=== PATIENT | female | born 1985 | race Caucasian/White ===

== ENCOUNTER 2019-07-14 08:02 | Emergency (ER) | payer OTHER, SELFPAY ==
--- NOTE | 2019-07-14 08:11 | ED.GENADULT ---
HPI - General Adult General Chief complaint: Upper Respiratory Infection Stated complaint: sore throat/earache/chills/dry cough/runny nose Time Seen by Provider: 07/14/19 08:11 Source: patient Mode of arrival: ambulatory Limitations: no limitations History of Present Illness HPI narrative: 33-year-old female patient presents to the [facility] with complaints of cold symptoms that started yesterday. Patient states she has had a sore throat, slight cough, runny nose, headache. Patient states she is been taking Tylenol ibuprofen. Patient states that she did not get a flu shot this year. Patient states that her son's class had a couple cases of strep but he himself has not had strep or been sick recently. Related Data Home Medications Medication Instructions Recorded Confirmed No Home Medications 07/14/19 07/14/19 Allergies Allergy/AdvReac Type Severity Reaction Status Date / Time Penicillins Allergy Mild HIVES Verified 05/10/18 04:41 terbutaline Allergy Mild Unknown Verified 07/14/19 08:27 Sulfa (Sulfonamide Allergy Unknown HIVES\ Verified 05/10/18 04:41 Antibiotics) Review of Systems Review of Systems: Narrative: CONSTITUTIONAL: Denies fever, chills, or sweats. EYES: Denies visual changes, redness, or discharge. ENT: Positive rhinorrhea, congestion, sore throat, denies otalgia. CARDIOVASCULAR: Denies chest pain, palpitations, or edema. RESPIRATORY: Positive cough, denies dyspnea. GASTROINTESTINAL: Denies abdominal pain, nausea, vomiting, or diarrhea. GENITOURINARY: Denies dysuria or hematuria. SKIN: Denies rash or itching. MUSCULOSKELETAL: Denies back pain, joint pain, or myalgia. NEUROLOGIC: Denies headache, numbness, or weakness. PSYCHIATRIC: Denies anxiety or depression. PMFSH Social History Social History Gender identity (if verbalized by the patient): Female Comments At the time of my signature I agree with nursing past medical history, surgical, social, and family history. There is no relevant family history pertinent to the presenting complaint. Exam Narrative: Exam Narrative: GENERAL: Well-appearing, well-nourished, and in no acute distress. HEAD: Normocephalic, atraumatic. EYES: PERRLA and EOMI. ENT: Nares clear, no rhinorrhea or epistaxis. Mucous membranes moist. Posterior pharynx with slight erythema but no tonsil enlargement, no exudates or lesions present. NECK: Supple. No lymphadenopathy CHEST: Clear to auscultation. No respiratory distress. Patient able talk in clear complete sentences. No tripoding noted. HEART: Regular rate and rhythm. No murmur heard. Normal peripheral pulses. ABDOMEN: Soft, nontender, nondistended, normal active bowel sounds. EXTREMITIES: Normal range of motion. No edema. SKIN: Warm, dry, no rash. NEURO: No focal deficits. Alert and oriented x3. Course Reevaluation(s) Reevaluation #1: Notify patient that she is negative today for strep. Discussed with her we will send this off to the lab for further evaluation and testing if for some reason it does come back positive the next day or 2 we will call her and place her on antibiotics at that time. Patient verbalized understanding denies any other questions or concerns at this time. Discussed with patient she can continue treating herself with Tylenol, ibuprofen, warm salt water gargles and hot tea with honey. Patient verbalized understanding denies any other questions or concerns. Date: 07/14/19 Time: 08:33 Vital Signs Vital signs: Vital Signs Temperature 36.4 C 07/14/19 08:18 Pulse Rate 72 07/14/19 08:18 Respiratory Rate 16 07/14/19 08:18 Blood Pressure 117/73 07/14/19 08:18 Pulse Oximetry 99 07/14/19 08:18 Temperature 36.4 C 07/14/19 08:18 Pulse Rate 72 07/14/19 08:18 Respiratory Rate 16 07/14/19 08:18 Blood Pressure 117/73 07/14/19 08:18 Pulse Oximetry 99 07/14/19 08:18 Vital signs reviewed. Medical Decision Making Di
[2019-07-14 08:18] VITALS: BP 117/73; PULSE 72; RESP 16; TEMP 36.4; O2SAT 99
== END 2019-07-14 08:35 | disposition home or self-care (01) ==
PROVIDERS: Emergency Provider Nurse Practitioner Family
DX: J02.9 Acute pharyngitis, unspecified (principal); Z90.711 Acquired absence of uterus with remaining cervical stump
CPT/HCPCS: 87081; 87880; 99213; G0463

== ENCOUNTER 2021-05-12 19:41 | Emergency (ER) | payer OTHER, SELFPAY ==
[2021-05-12] VITALS (13 sets, daily range): BP systolic 110–127; BP diastolic 67–89; PULSE 108–127; RESP 11–31; TEMP 37.6; O2SAT 93–99
--- NOTE | ~2021-05-12 | XR_ITS ---
EXAMINATION: XR chest 1V portable INDICATION: Shortness of breath and cough TECHNIQUE: Portable AP chest at 2132 hours COMPARISON: 04/16/2018 FINDINGS: There are patchy airspace opacities of the mid and lower lung zones. No pleural effusion or pneumothorax is identified. The cardiomediastinal silhouette is normal. IMPRESSION: 1. Patchy airspace opacities of the mid and lower lung zones, likely pneumonia. Reviewed, dictated and finalized at location F. ENGINEER
--- NOTE | 2021-05-12 21:30 | ED.URI ---
HPI - URI/Sore Throat General Chief Complaint: Shortness of Breath/Dyspnea Stated Complaint: Feels sick,SOB Time Seen by Provider: 05/12/21 21:27 Source: patient Mode of arrival: ambulatory Limitations: no limitations History of Present Illness HPI Narrative: Patient is a 35-year-old female complaining of fever, cough, body aches, headache, fatigue, loss of taste and smell, nasal congestion, shortness of breath, generalized weakness and nausea that started 4 days ago. Patient states that she had positive sick contact with someone who tested positive for Covid. Patient denies any abdominal pain, vomiting or diarrhea. Patient states that she is not vaccinated from Covid Related Data Home Medications Medication Instructions Recorded Confirmed No Home Medications 07/14/19 07/14/19 Allergies Allergy/AdvReac Type Severity Reaction Status Date / Time Penicillins Allergy Mild HIVES Verified 05/10/18 04:41 terbutaline Allergy Mild Unknown Verified 07/14/19 08:27 Sulfa (Sulfonamide Allergy Unknown HIVES\ Verified 05/10/18 04:41 Antibiotics) Review of Systems Review of Systems: All systems reviewed & are unremarkable except as noted in HPI and below Constitutional: Constitutional: Denies body ache(s), Denies excessive sweating, Denies headache(s), Denies lethargy and Denies weight loss Eyes: Eyes: Denies blurry vision, Denies change in vision and Denies loss of vision ENT: Denies dizziness, Denies ear discharge, Denies headache(s), Denies lip swelling, Denies epistaxis, Denies nasal congestion, Denies neck pain, Denies throat swelling and Denies tongue swelling Cardiovascular: Cardiovascular: Denies chest pain, Denies chest pain at rest, Denies chest pain with activity, Denies diaphoresis, Denies rapid heart rate, Denies edema, Denies irregular heart rhythm, Denies lightheadedness and Denies palpitations Respiratory: Respiratory: Denies chest congestion and Denies hemoptysis Gastrointestinal: Gastrointestinal: Denies abdominal pain, Denies melena, Denies hematochezia, Denies diarrhea, Denies nausea, Denies vomiting and Denies hematemesis Musculoskeletal: Musculoskeletal: Denies abnormal gait, Denies deformity, Denies joint swelling, Denies limited range of motion, Denies neck pain and Denies numbness Neurologic: Denies Abnormal speech present, Denies abnormal gait, Denies confusion, Denies dizziness, Denies headache(s), Denies focal weakness, Denies loss of vision, Denies numbness, Denies Other visual disturbances, Denies Sensory deficit (Neuro) and Denies weakness Psychiatric: Psychiatric: Denies confusion, Denies depression, Denies auditory hallucinations, Denies homicidal ideation and Denies suicidal ideation Endocrine: Endocrine: Denies cold intolerance, Denies excessive sweating, Denies fatigue, Denies heat intolerance and Denies palpitations Hematologic/Lymphatic: Hematologic/Lymphatic: Denies easy bleeding and Denies easy bruising Allergic/Immunologic: Allergic/Immunologic: Denies lip swelling, Denies throat swelling and Denies tongue swelling [facility] Social History Social History Gender identity (if verbalized by the patient): Female Comments Past medical history: None Family history: Hypertension, diabetes Social history: Non-smoker no EtOH or drug use Exam Const: General: cooperative, healthy appearing, comfortable, no acute distress, well developed, alert and awake; No confusion Orientation/consciousness: oriented to person, oriented to place, oriented to time, patient oriented x3 and No confusion Limitations: no limitations HENMT: Head: normal to inspection, normocephalic and atraumatic Ears: hearing grossly normal bilaterally, TM normal on the right and TM normal on the left General nose exam: Normal external nose present, Normal nares present and No nasal discharge present Face and sinus: normal facial exam Mouth: Yes Normal oral and palatal mucosa
[2021-05-12] MEDS: ACETAMINOPHEN 325 MG TABLET 650 MG PO (22:42)
[2021-05-12 23:42] LABS: SARS-CoV-2 RNA PCR Positive
[2021-05-13] VITALS: PULSE 113; RESP 24; O2SAT 96
[2021-05-13 00:01] VITALS: BP 113/82; PULSE 113; RESP 24; O2SAT 94
[2021-05-13 00:02] VITALS: PULSE 114; RESP 23
[2021-05-13 00:15] VITALS: PULSE 108; RESP 28; O2SAT 92
[2021-05-13 00:16] VITALS: BP 102/61; PULSE 109; RESP 21; TEMP 37.2; O2SAT 94
[2021-05-13] MEDS: KETOROLAC 30 MG/ML VIAL (*BKC) IM (00:19)
== END 2021-05-13 00:30 | disposition home or self-care (01) ==
PROVIDERS: Emergency Provider Emergency Medicine; PCP Emergency Medicine
DX: U07.1 COVID-19 (principal); J12.82 Pneumonia due to coronavirus disease 2019
CPT/HCPCS: 71045; 87804; 96372; 99284; A9270; C9803; J1100; J1885; U0003; U0005

== ENCOUNTER 2021-05-13 14:24 | Emergency (ER) | payer OTHER, SELFPAY ==
[2021-05-13 14:28] VITALS: BP 149/102; PULSE 104; RESP 20; TEMP 36.1; O2SAT 96
--- NOTE | 2021-05-13 18:28 | PC.NURSE ---
pt not in lobby when called
== END 2021-05-13 18:28 | disposition left against medical advice (07) ==
PROVIDERS: Emergency Provider Emergency Medicine; PCP Emergency Medicine
DX: U07.1 COVID-19 (principal); J12.82 Pneumonia due to coronavirus disease 2019
CPT/HCPCS: 99199

== ENCOUNTER 2021-05-14 12:01 | Emergency (ER) | payer OTHER, SELFPAY ==
--- NOTE | ~2021-05-14 | XR_ITS ---
EXAMINATION: XR chest 1V portable EXAM DATE: 05/14/2021 12:25 INDICATION: SOB, COVID . TECHNIQUE: Portable AP frontal chest x-ray was obtained. Comparison is made to prior examination from 05/12/2021, 04/16/2018. FINDINGS: Mild cardiomegaly. Moderate amount of patchy mid and lower lung zone airspace disease consi stent with pneumonia and/or edema. Stable or minimal progression compared to yesterday. No pneumothor ax or pleural effusion. There are no osseous abnormalities identified. IMPRESSION: 1. Moderate amount of bilateral pneumonia or edema. 2. Mild cardiomegaly. Reviewed, dictated and finalized at location A. E MACHINE FEEDER
[2021-05-14 12:09] VITALS: BP 123/66; PULSE 121; RESP 22; TEMP 38.3; O2SAT 95
--- NOTE | 2021-05-14 12:13 | ECG_ITS ---
Measurements Intervals [place] Rate: 121 P: 19 GA: 148 QRS: 15 QRSD: 85 T: 28 QT: 338 QTc: 481 Interpretive Statements SINUS TACHYCARDIA NONSPECIFIC T-WAVE ABNORMALITY- ANT/INF LEADS BASELINE ARTIFACT- V1, V3-V5 ABNORMAL ECG Electronically Signed On 05-14-2021 12:48:55 DEVELOPMENT TEAM LEAD by Simón Castellano D.O.
[2021-05-14 12:58] LABS: Basophils Percent Auto 0.2 % (0.2-1.2); Hematocrit 39.5 % (37.0-47.0); Hemoglobin 13.3 g/dL (12.0-15.0); Immature Granulocyte Absolute 0.03 K/mm3 (0.00-0.031); Immature Granulocyte Percent A 0.5 % (0-0.5); Immature Platelet Fraction Pct 2.5 % (0.9-11.2); Lymphocytes Absolute Auto 1.23 K/mm3 (0.9-3.2); Lymphocytes Percent Auto 18.9 % (18.3-44.2); Mean Corpuscular HGB Conc 33.7 g/dl (32-36); Mean Corpuscular Hemoglobin 32.6 pg (26-34); Mean Corpuscular Volume 96.8 fl (80-100); Mean Platelet Volume 9.2 fl (7.4-10.4); Monocytes Absolute Auto 0.2 K/mm3 (0.1-0.6); Monocytes Percent Auto 3.1 % (2.6-8.5); Neutrophils Percent Auto 77.3 % (45.5-73.1); Platelet Count Result 149 k/mm3 (150-375); Red Blood Count 4.08 M/mm3 (4.2-5.4); Red Cell Distribution Width 11.9 % (11.5-14.5); White Blood Count 6.5 K/mm3 (4.5-10.0)
[2021-05-14 13:09] LABS: Alanine Aminotransferase 46 U/L (4-35); Albumin Level 4.2 g/dL (3.5-5.1); Alkaline Phosphatase 45 U/L (38-126); Anion Gap 10 mmol/L (8-16); Aspartate Amino Transferase 33 U/L (14-36); Bilirubin,Total 0.3 mg/dL (0.2-1.3); Blood Urea Nitrogen 14 mg/dL (7-17); CRP 3.3 mg/dL (<1.0); Calcium 8.7 mg/dL (8.4-10.2); Carbon Dioxide 27 mmol/L (22-30); Chloride 101 mmol/L (98-107); Estimated CRCL calculation 83 ml/min; Estimated Glomerular Filt Rate > 60; Glucose 103 mg/dL (65-110); Partial Thromboplastin Time 26.9 SECONDS (22.3-36.8); Potassium 3.9 mmol/L (3.4-5.0); Sodium 138 mmol/L (137-145)
[2021-05-14 13:10] LABS: Lactic Acid Reflex 2.4 mmol/L (0.7-2.1)
--- NOTE | 2021-05-14 13:14 | ED.GENADULT ---
HPI - General Adult General Chief complaint: Upper Respiratory Infection Stated complaint: SOB, COVID + Time Seen by Provider: 05/14/21 13:00 Source: patient and RN notes reviewed Limitations: no limitations History of Present Illness HPI narrative: 35-year-old female present to the emergency department for evaluation of COVID symptoms. Patient states that she tested positive on Thursday. Patient began developing worsening symptoms Thursday. Patient presents to the ED complaining of shortness of breath nausea and exertional fatigue. Patient has been treating her fever with Tylenol. Upon arrival to the emergency department patient was tachycardic with fever. At rest patient is saturating at 95% on room air, patient states that at home during ambulation she had a pulse ox in the 80s. Related Data Allergies Allergy/AdvReac Type Severity Reaction Status Date / Time Penicillins Allergy Mild HIVES Verified 05/14/21 12:14 terbutaline Allergy Mild Unknown Verified 05/14/21 12:14 Sulfa (Sulfonamide Allergy Unknown HIVES\ Verified 05/14/21 12:14 Antibiotics) Review of Systems Review of Systems: CONSTITUTIONAL: Reports fever chills and generalized weakness EYES: Denies visual changes, redness, or discharge. ENT: Denies rhinorrhea, congestion, sore throat, or otalgia. CARDIOVASCULAR: Denies chest pain, palpitations, or edema. RESPIRATORY: Does report cough pain and shortness of breath. GASTROINTESTINAL: Denies abdominal pain, vomiting, or diarrhea. Does have nausea GENITOURINARY: Denies dysuria or hematuria. SKIN: Denies rash or itching. MUSCULOSKELETAL: Denies back pain, joint pain, or myalgia. NEUROLOGIC: Denies headache, numbness, or weakness. PSYCHIATRIC: Denies anxiety or depression. [facility] Social History Social History Gender identity (if verbalized by the patient): Female Exam Narrative: APPEARANCE: Well appearing, no pain in distress, well-nourished. HEAD: normocephalic, atraumatic. EYES: PERRLA/EOMI, conjunctivae clear. NOSE: Normal no drainage EARS:TMS clear with good light reflex. THROAT: Pharynx clear, no exudate. NECK: Supple. No adenopathy, no masses. RESPIRATORY: Airway patent, respirations nonlabored. Clear to auscultation bilaterally, no rales, rhonchi, wheezing. CARDIOVASCULAR: Tachycardic ABDOMINAL: Soft, nontender, nondistended, normal bowel sounds MUSCULOSKELETAL: Moves all extremities. Strength/ROM intact, No edema, No calf tenderness. NEURO: Alert. Cranial nerves II through XII intact. Good gait. Good coordination SKIN: Warm, dry. Normal Color PSYCHIATRIC: Normal affect/mood. Course Course Emergency Course: Patient's tachycardia did improve with rehydration. Patient was ambulated in the room and she is not hypoxic with ambulation. Patient did have a chest x-ray showing COVID-pneumonia. Patient is complaining of generalized body aches fatigue and nausea. Patient was advised to take [id number] pain medications to help with her symptoms. Patient is also being provided albuterol inhaler and Zofran for nausea control. Vital Signs Vital signs: Vital Signs Temperature 100.9 F H 05/14/21 12:09 Pulse Rate 121 H 05/14/21 12:09 Respiratory Rate 22 H 05/14/21 12:09 Blood Pressure 123/66 05/14/21 12:09 Pulse Oximetry 95 05/14/21 12:09 Temperature 100.9 F H 05/14/21 12:09 Pulse Rate 62 05/14/21 17:05 Respiratory Rate 18 05/14/21 17:05 Blood Pressure 132/78 05/14/21 17:05 Pulse Oximetry 93 05/14/21 17:05 Medical Decision Making Vital Signs Vital Signs: Vital Signs Temperature 100.9 F H 05/14/21 12:09 Pulse Rate 121 H 05/14/21 12:09 Respiratory Rate 22 H 05/14/21 12:09 Blood Pressure 123/66 05/14/21 12:09 Pulse Oximetry 95 05/14/21 12:09 Temperature 100.9 F H 05/14/21 12:09 Pulse Rate 62 05/14/21 17:05 Respiratory Rate 18 05/14/21 17:05 Blood Pressure 132/78 05/14/21 17:05 Pulse Oximetr
[2021-05-14] MEDS: ONDANSETRON INJ 4 MG/2 ML VIAL IV PUSH (13:15)
[2021-05-14] MEDS: SODIUM CHLORIDE 0.9% IV 1,000 ML 999 ML IV CONT ×2 (13:15→14:34)
[2021-05-14] MEDS: ACETAMINOPHEN 500 MG TABLET 1000 MG PO (13:16)
[2021-05-14 14:02] VITALS: BP 130/62; PULSE 78; RESP 22; O2SAT 95
[2021-05-14] MEDS: HYDROcodone/acetaminophen (*CRX) 5-325 MG TABLET 1 TAB PO (14:34)
[2021-05-14 14:53] LABS: Add Urine Microscopic? YES; Appearance Urine Clear (Clear); Bacteria Urine 1+ /hpf; Bilirubin Urine Negative (Negative); Blood Urine Negative (Negative); Color Urine Yellow (Yellow); Glucose Urine UA Negative (Negative); Ketones Urine Negative (Negative); Leukocyte Esterase Ur Negative LEU/UL (Negative); Mucus Urine Rare /lpf; Nitrate Urine Negative (Negative); Protein Urine Negative (Negative); Specific Grav Ur 1.025 (1.001-1.035); Squamous Epithelial Cell Urine Few /hpf (Few); WBC Urine 0-3 /hpf
[2021-05-14 15:53] LABS: Reflex Lactic Acid Yes or No Add Lactic
[2021-05-14 16:24] LABS: Lactic Acid 1.1 mmol/L (0.7-2.1)
[2021-05-14 17:05] VITALS: BP 132/78; PULSE 62; RESP 18; O2SAT 93
== END 2021-05-14 17:08 | disposition home or self-care (01) ==
PROVIDERS: Emergency Medicine; Emergency Provider Emergency Medicine; PCP Emergency Medicine
DX: U07.1 COVID-19 (principal); J12.82 Pneumonia due to coronavirus disease 2019; I51.7 Cardiomegaly; R00.0 Tachycardia, unspecified; R94.31 Abnormal electrocardiogram [ECG] [EKG]
CPT/HCPCS: 36415; 71045; 80053; 81001; 81025; 83605; 85025; 85055; 85610; 85730; 86140; 87040; 93005; 96361; 96374; 99284; A9270; J2405; J7030

== ENCOUNTER 2022-04-26 15:23 | Emergency (ER) | payer OTHER, SELFPAY ==
--- NOTE | ~2022-04-26 | XR_ITS ---
EXAM: XR finger 2nd RT min 2V DATE: 04/26/2022 16:29 HISTORY: smashed distal rt 2nd finger yesterday . COMPARISON: None available. FINDINGS: Normal mineralization. Transverse minimally displaced fracture of the right second distal phalange. No lytic or blastic lesion. Joint spaces are maintained. No erosion or periosteal change. S oft tissues within normal limits. IMPRESSION: Transverse, minimally displaced fracture of the right second distal phalange. Reviewed, dictated and finalized at location K. DENT COORDINATOR
[2022-04-26 16:20] VITALS: BP 124/67; PULSE 97; RESP 16; TEMP 36.6; O2SAT 99
--- NOTE | 2022-04-26 16:21 | ED.UPPEXIN ---
HPI - Extremity Injury (Upper) General Chief Complaint: Extremity Injury, Upper Stated Complaint: Right Hand Pain Time Seen by Provider: 04/26/22 16:27 Source: patient, RN notes reviewed and old records reviewed Mode of arrival: ambulatory Limitations: no limitations History of Present Illness HPI narrative: 36-year-old female presents to the [facility] with pain, bruising and swelling to the 2nd finger right hand after her car door closed on her finger last night. Capillary refill under cyst seconds, subungual hematoma noted Related Data Home Medications Medication Instructions Recorded Confirmed sumatriptan succinate 25 mg tablet mg PO 04/26/22 Allergies Allergy/AdvReac Type Severity Reaction Status Date / Time Penicillins Allergy Mild HIVES Verified 04/26/22 16:23 terbutaline Allergy Mild Unknown Verified 04/26/22 16:23 Sulfa (Sulfonamide Allergy Unknown HIVES\ Verified 04/26/22 16:23 Antibiotics) Review of Systems Review of Systems: All systems reviewed & are unremarkable except as noted in HPI and below Constitutional: Constitutional: Reports no additional constitutional complaints Eyes: Eyes: Reports no additional eye complaints ENT: Reports system reviewed and no additional complaints, except as documented Cardiovascular: Cardiovascular: Reports no additional cardiovascular complaints, Denies chest pain and Denies dyspnea Respiratory: Respiratory: Reports no additional respiratory complaints, Denies chest congestion, Denies cough and Denies dyspnea Gastrointestinal: Gastrointestinal: Reports no additional gastrointestinal complaints, Denies abdominal pain, Denies nausea and Denies vomiting Musculoskeletal: Musculoskeletal: Reports as per HPI Integumentary/Breasts: Skin/Breast: Reports system reviewed and no additional complaints, except as docu Neurologic: Reports system reviewed and no additional complaints, except as documented Psychiatric: Psychiatric: Reports no additional psychiatric complaints Allergic/Immunologic: Allergic/Immunologic: Reports no additional allergic/immunologic complaints PMFSH Social History Social History Gender identity (if verbalized by the patient): Female Comments At the time of my signature, I reviewed and agree with the nursing past medical, surgical, social, and family history. There is no relevant family history pertinent to the patient complaint. Exam Const: General: cooperative, healthy appearing, comfortable, no acute distress, well developed, alert and well nourished Nutritional Appearance: well nourished Orientation/consciousness: patient oriented x3 Limitations: no limitations HENMT: Head: normal to inspection Ears: hearing grossly normal bilaterally and external ears normal Face/Nose/Sinus: Normal external nose present, Normal nares present, Normal nasal mucous membranes and turbinates present and normal facial exam Face and sinus: normal facial exam Mouth: Yes Normal oral and palatal mucosa present, Yes lip normal and Yes moist mucous membranes Throat: posterior oropharynx normal and uvula midline Eyes: General: appearance normal, both eyes and all related structures Alignment and Position: alignment normal Periorbital: periorbital findings normal Conjunctivae: conjunctivae normal Pupils: Equal, round and reactive pupils present EOM: EOMs intact bilaterally Neck: Neck: normal visual inspection, full ROM, no lymphadenopathy and no meningeal signs Chest: Chest palpation & inspection: normal inspection of the chest Resp: Effort & Inspection: normal respiratory effort and able to speak in complete sentences Auscultation: clear to auscultation bilaterally, no crackles, no rales, no rhonchi and no wheezes Cardio: Rate: regular rate Rhythm: regular rhythm Back/Spine/Pelvis: Cervical Spine: cervical ROM normal Thoracic/Lumbar Spine: No thoracic spinal tenderness Skin: General skin exam: n
== END 2022-04-26 17:24 | disposition home or self-care (01) ==
PROVIDERS: Emergency Provider Nurse Practitioner; PCP Emergency Medicine
DX: S62.630A Displaced fracture of distal phalanx of right index finger, initial encounter for closed fracture (principal); X58.XXXA Exposure to other specified factors, initial encounter; S60.121A Contusion of right index finger with damage to nail, initial encounter; J45.990 Exercise induced bronchospasm; Z86.16 Personal history of COVID-19; Z90.711 Acquired absence of uterus with remaining cervical stump
CPT/HCPCS: 11740; 29130; 73140; 99214; G0463

== ENCOUNTER 2024-04-09 15:35 | Emergency (ER) | payer OTHER, SELFPAY ==
[2024-04-09] VITALS (10 sets, daily range): BP systolic 125–148; BP diastolic 55–90; PULSE 80–92; RESP 17–22; TEMP 36.3–36.4; O2SAT 97–100
--- NOTE | ~2024-04-09 | XR_ITS ---
EXAMINATION: XR chest 2V DATE: 04/09/2024 21:55 INDICATION: Upper respiratory infection. TECHNIQUE: Frontal and lateral views of the chest were obtained. COMPARISON: Chest single view 05/14/2021, CT abdomen and pelvis 04/16/2018 FINDINGS: The lung volumes are small. There is no pneumonia, pleural effusion, or pneumothorax. The h eart size is normal. Surgical clips in the right upper quadrant are likely from cholecystectomy. IMPRESSION: 1. No acute cardiopulmonary disease. Reviewed, dictated and finalized at location A. [employer]
--- NOTE | ~2024-04-09 | CT_ITS ---
EXAMINATION: CT abdomen pelvis w con DATE: 04/09/2024 22:56 INDICATION: Low abdominal pain. TECHNIQUE: Computed tomography (CT) of the abdomen and pelvis was performed with 100 mL Omnipaque 350 intravenous contrast. Automated exposure control and iterative reconstruction technique were employe d. The dose-length product was 1078.42 mGy-cm. COMPARISON: CT abdomen and pelvis 04/16/2018 FINDINGS: The visualized portions of the lung bases demonstrate mild atelectasis on the left. No pleu ral effusion. The heart size is normal. No pericardial effusion. There is diffuse hepatic steatosis. There are changes of cholecystectomy. The spleen, pancreas, adrenal glands, and kidneys are normal. T here are no dilated loops of bowel. The appendix is normal. There are no pathologically enlarged lymp h nodes. There is a supraumbilical ventral hernia containing fat. There is no free intraperitoneal fl uid. There is mild thoracic spondylosis. IMPRESSION: 1. Diffuse hepatic steatosis. 2. Supraumbilical ventral hernia containing fat. Reviewed, dictated and finalized at location A. [employer]
--- NOTE | 2024-04-09 15:42 | ECG_ITS ---
Test Date: 2024-04-09 15:50:01 Measurements Intervals [place] Rate: 100 P: 32 GA: 157 QRS: 53 QRSD: 89 T: 50 QT: 366 QTc: 473 Interpretive Statements SINUS TACHYCARDIA ABNORMAL RHYTHM ECG No previous ECG available for comparison Electronically Signed On 04-10-2024 14:47:13 ENGINEERING INSTRUCTOR by Keith Somers M.D.
[2024-04-09 16:07] LABS: Add Urine Microscopic? YES; Appearance Urine Cloudy (Clear); Bacteria Urine None Seen /hpf; Bilirubin Urine Negative (Negative); Blood Urine Negative (Negative); Color Urine Yellow (Yellow); Glucose Urine UA Negative (Negative); Ketones Urine Negative (Negative); Leukocyte Esterase Ur Negative LEU/UL (Negative); Nitrate Urine Negative (Negative); Non Pathogenic Casts 0-2; Protein Urine Negative (Negative); RBC Urine 0-2 /hpf (0-2); Squamous Epithelial Cell Urine None Seen /hpf (Few); Urobilinogen Urine 0.2 mg/dL (<2.0); WBC Urine 0-5 /hpf (0-3)
[2024-04-09 20:59] LABS: Basophils Percent Auto 0.5 % (0.2-1.2); Eosinophils Absolute Auto 0.1 K/mm3 (0-0.3); Eosinophils Percent Auto 1.9 % (0-4.4); Hematocrit 39.1 % (37.0-47.0); Hemoglobin 13.8 g/dL (12.0-15.0); Immature Granulocyte Absolute 0.02 K/mm3 (0.00-0.031); Immature Granulocyte Percent A 0.3 % (0-0.5); Lymphocytes Absolute Auto 2.48 K/mm3 (0.9-3.2); Lymphocytes Percent Auto 33.2 % (18.3-44.2); Mean Corpuscular HGB Conc 35.3 g/dl (32-36); Mean Corpuscular Hemoglobin 33.2 pg (26-34); Mean Platelet Volume 8.6 fl (7.4-10.4); Monocytes Absolute Auto 0.5 K/mm3 (0.1-0.6); Monocytes Percent Auto 6.8 % (2.6-8.5); Neutrophils Absolute Auto 4.3 K/mm3 (1.3-6.7); Neutrophils Percent Auto 57.3 % (45.5-73.1); Platelet Count Result 191 k/mm3 (150-375); Red Blood Count 4.16 M/mm3 (4.2-5.4); Red Cell Distribution Width 12.1 % (11.5-14.5); White Blood Count 7.5 K/mm3 (4.5-10.0)
[2024-04-09 21:10] LABS: Alanine Aminotransferase 84 U/L (6-35); Albumin Level 4.4 g/dL (3.5-5.1); Alkaline Phosphatase 72 U/L (38-126); Anion Gap 4 mmol/L (4-12); Aspartate Amino Transferase 47 U/L (14-36); Bilirubin,Total 0.6 mg/dL (0.2-1.3); Blood Urea Nitrogen 10 mg/dL (7-17); Calcium 8.7 mg/dL (8.4-10.2); Carbon Dioxide 30 mmol/L (22-30); Chloride 101 mmol/L (98-107); Estimated CRCL calculation 92 ml/min; Estimated Glomerular Filt Rate > 60; Glucose 107 mg/dL (65-110); Lipase 105 U/L (23-300); Potassium 3.9 mmol/L (3.4-5.0); Sodium 135 mmol/L (137-145)
--- NOTE | 2024-04-09 21:47 | ED.ABDPAIN ---
HPI - Abdominal Pain General Chief Complaint: Abdominal Pain Stated Complaint: chest pain Time Seen by Provider: 04/09/24 21:04 History of Present Illness HPI narrative: Patient is 78-year-old female who presents to the ER with complaints bilateral lower abdominal pain. She reports she has been having ?increased anxiety lately and was experiencing that this morning. Patient reports she then experienced such severe abdominal pain that it ?dropped me to my knees. She endorses a history of PCOS and a total hysterectomy ?16 years ago. Patient reports she can usually tell when she has an ovarian cyst but is usually one-sided. She reports the pain radiates to her back bilaterally. Patient also endorses a 20 weight gain in the past 2 months. She denies shortness of breath, chest pain, fevers. Patient endorses a recent URI but ?never went to the doctor. Related Data Home Medications Medication Instructions Recorded Confirmed sumatriptan succinate 25 mg tablet mg PO 04/26/22 Allergies Allergy/AdvReac Type Severity Reaction Status Date / Time Penicillins Allergy Mild HIVES Verified 04/26/22 16:23 terbutaline Allergy Mild Unknown Verified 04/26/22 16:23 Sulfa (Sulfonamide Allergy Unknown HIVES\ Verified 04/26/22 16:23 Antibiotics) Review of Systems Review of Systems: All systems reviewed & are unremarkable except as noted in HPI and below PMFSH Social History Social History Gender identity (if verbalized by the patient): Female Exam Narrative: GENERAL: Well appearing, well-nourished, non-toxic, in no acute distress. HEAD: Normocephalic, atraumatic. NECK: Supple. No adenopathy, no masses. RESPIRATORY: Airway patent, respirations nonlabored. Clear to auscultation bilaterally, no rales, rhonchi, wheezing. CARDIOVASCULAR: Regular rate and rhythm without murmurs, rubs, or gallops. Peripheral pulses 2+ and equal bilaterally. ABDOMINAL: Soft, tender with palpation, nondistended, no hepatosplenomegaly. Normoactive BS. MUSCULOSKELETAL: Moves all extremities. Strength/ROM intact without gross deformities. SKIN: Warm, dry, normal color. No rashes. NEURO: A&O X3. Speech clear. Cranial nerves II-XII grossly intact. Steady gait. No ataxic movements. PSYCHIATRIC: Appropriate mood and affect. Normal interaction. Course Vital Signs Vital signs: Vital Signs Temperature 36.4 C 04/09/24 15:37 Pulse Rate 92 04/09/24 15:37 Respiratory Rate 22 H 04/09/24 15:37 Blood Pressure 127/55 L 04/09/24 15:37 Pulse Oximetry 100 04/09/24 15:37 Oxygen Delivery Room Air 04/09/24 15:37 Temperature 36.3 C L 04/09/24 23:59 Pulse Rate 80 04/09/24 23:59 Respiratory Rate 17 04/09/24 23:59 Blood Pressure 132/76 04/09/24 23:59 Pulse Oximetry 97 04/09/24 23:59 Oxygen Delivery Room Air 04/09/24 15:37 MDM - Abdominal Pain MDM Narrative Medical decision making narrative: Patient is 78-year-old female who presents to the ER with complaints bilateral lower abdominal pain. She reports she has been having ?increased anxiety lately and was experiencing that this morning. Patient reports she then experienced such severe abdominal pain that it ?dropped me to my knees. She endorses a history of PCOS and a total hysterectomy ?16 years ago. Patient reports she can usually tell when she has an ovarian cyst but is usually one-sided. She reports the pain radiates to her back bilaterally. Patient also endorses a 20 weight gain in the past 2 months. She denies shortness of breath, chest pain, fevers. Patient endorses a recent URI but ?never went to the doctor. Labs Ordered: CBC, CMP, UA, lipase TSH, COVID/flu/RSV Imaging Ordered: Chest x-ray, CT abdomen pelvis with con Results: Patient's CBC was unremarkable. Her CMP indicated a sodium of 135, AST of 47 and ALT of 84. Her urine was unremarkable. Patient's COVID/flu/RSV swabs were negative. Patient's chest x-ray indicates The lung volumes are small. There is no pneumonia, pleural effusion, or pneumothorax. The heart size is normal. Surgical clips in the right upper quadrant are likely from cholecystectomy. Diagnosis: abdominal pain of unknown cause Patient Education/Shared MDM: Results were shared with patient. She reports the morphine and Toradol helped relieve her pain for while but is no ?creeping back up. Will give patient a [place] prior to discharge from the ER and a prescription for Bentyl. Patient provided with extensive education on when to return to the ER. She verbalizes understanding and is in agreement with plan. Disposition/Plan: Patient is in agreement with current treatment plan. All questions answered. Vital signs stable at time of discharge. Differential Diagnosis Differential diagnosis: Likely abdominal pain, acute appendicitis, constipation, gastroenteritis and small bowel obstruction Lab Data Attestation: I reviewed the patient's lab results. 04/09/24 20:53 04/09/24 20:53 Labs: Lab Results 04/09/24 04/09/24 04/09/24 Range/Units 15:55 20:53 22:16 WBC 7.5 (4.5-10.0) K/mm3 RBC 4.16 L (4.2-5.4) M/mm3 Hgb 13.8 (12.0-15.0) g/dL Hct 39.1 (37.0-47.0) % MCV 94.0 (80-100) fl MCH 33.2 (26-34) pg MCHC 35.3 (32-36) g/dl RDW 12.1 (11.5-14.5) % Plt Count 191 (150-375) k/mm3 MPV 8.6 (7.4-10.4) fl Immature Gran % (Auto) 0.3 (0-0.5) % Neut % (Auto) 57.3 (45.5-73.1) % Lymph % (Auto) 33.2 (18.3-44.2) % [place] % (Auto) 6.8 (2.6-8.5) % Eos % (Auto) 1.9 (0-4.4) % Baso % (Auto) 0.5 (0.2-1.2) % Lymph # (Auto) 2.48 (0.9-3.2) K/mm3 [place] # (Auto) 0.5 (0.1-0.6) K/mm3 Eos # (Auto) 0.1 (0-0.3) K/mm3 Baso # (Auto) 0.0 (0.0-0.1) K/mm3 Abs Immat Gran (auto) 0.02 (0.00-0.031) K/mm3 Absolute Neuts (auto) 4.3 (1.3-6.7) K/mm3 Absolute Nucleated RBC 0.000 (0.0-0.012) K/mm3 Nucleated RBC % 0.0 (0.0-0.2) % Sodium 135 L (137-145) mmol/L Potassium 3.9 (3.4-5.0) mmol/L Chloride 101 (98-107) mmol/L Carbon Dioxide 30 (22-30) mmol/L Anion Gap 4 (4-12) mmol/L BUN 10 (7-17) mg/dL Creatinine 0.70 (0.7-1.0) mg/dL Estim Creat Clear Calc 92 ml/min Estimated GFR > 60 (59 - ) Glucose 107 (65-110) mg/dL Calcium 8.7 (8.4-10.2) mg/dL Total Bilirubin 0.6 (0.2-1.3) mg/dL AST 47 H (14-36) U/L ALT 84 H (6-35) U/L Alkaline Phosphatase 72 (38-126) U/L Total Protein 7.0 (6.3-8.2) g/dL Albumin 4.4 (3.5-5.1) g/dL Lipase 105 (23-300) U/L TSH (Reflex) 1.790 (0.465-4.68) uIU/mL Urine Color Yellow (Yellow) Urine Appearance Cloudy H (Clear) Urine pH 7.0 (5.0-9.0) Ur Specific [place] 1.020 (1.001-1.035) Urine Protein Negative (Negative) mg/dL Urine Glucose (UA) Negative (Negative) mg/dL Urine Ketones Negative (Negative) mg/dL Ur Blood (Man) Negative (Negative) Urine Nitrate Negative (Negative) Urine Bilirubin Negative (Negative) Urine Urobilinogen 0.2 (<2.0) mg/dL Leukocyte Esterase Rfl Negative (Negative) ESTRELLA/UL Urine RBC 0-2 (0-2) /hpf Urine WBC 0-5 (0-3) /hpf Ur Squamous Epith Cells None seen (Few) /hpf Urine Bacteria None seen /hpf Urine Casts 0-2 Influenza A (RT-PCR) (Negative) Influenza B (RT-PCR) (Negative) RSV (RT-PCR) (Negative) SARS-CoV-2 RNA (RT-PCR) (Negative) 04/09/24 Range/Units 22:24 WBC (4.5-10.0) K/mm3 RBC (4.2-5.4) M/mm3 Hgb (12.0-15.0) g/dL Hct (37.0-47.0) % MCV (80-100) fl MCH (26-34) pg MCHC (32-36) g/dl RDW (11.5-14.5) % Plt Count (150-375) k/mm3 MPV (7.4-10.4) fl Immature Gran % (Auto) (0-0.5) % Neut % (Auto) (45.5-73.1) % Lymph % (Auto) (18.3-44.2) % [place] % (Auto) (2.6-8.5) % Eos % (Auto) (0-4.4) % Baso % (Auto) (0.2-1.2) % Lymph # (Auto) (0.9-3.2) K/mm3 [place] # (Auto) (0.1-0.6) K/mm3 Eos # (Auto) (0-0.3) K/mm3 Baso # (Auto) (0.0-0.1) K/mm3 Abs Immat Gran (auto) (0.00-0.031) K/mm3 Absolute Neuts (auto) (1.3-6.7) K/mm3 Absolute Nucleated RBC (0.0-0.012) K/mm3 Nucleated RBC % (0.0-0.2) % Sodium (137-145) mmol/L Potassium (3.4-5.0) mmol/L Chloride (98-107) mmol/L Carbon Dioxide (22-30) mmol/L Anion Gap (4-12) mmol/L BUN (7-17) mg/dL Creatinine (0.7-1.0) mg/dL Estim Creat Clear Calc ml/min Estimated GFR (59 - ) Glucose (65-110) mg/dL Calcium (8.4-10.2) mg/dL Total Bilirubin (0.2-1.3) mg/dL AST (14-36) U/L ALT (6-35) U/L Alkaline Phosphatase (38-126) U/L Total Protein (6.3-8.2) g/dL Albumin (3.5-5.1) g/dL Lipase (23-300) U/L TSH (Reflex) (0.465-4.68) uIU/mL Urine Color (Yellow) Urine Appearance (Clear) Urine pH (5.0-9.0) Ur Specific [place] (1.001-1.035) Urine Protein (Negative) mg/dL Urine Glucose (UA) (Negative) mg/dL Urine Ketones (Negative) mg/dL Ur Blood (Man) (Negative) Urine Nitrate (Negative) Urine Bilirubin (Negative) Urine Urobilinogen (<2.0) mg/dL Leukocyte Esterase Rfl (Negative) ESTRELLA/UL Urine RBC (0-2) /hpf Urine WBC (0-3) /hpf Ur Squamous Epith Cells (Few) /hpf Urine Bacteria /hpf Urine Casts Influenza A (RT-PCR) Negative (Negative) Influenza B (RT-PCR) Negative (Negative) RSV (RT-PCR) Negative (Negative) SARS-CoV-2 RNA (RT-PCR) Negative (Negative) Imaging Data Attestation: I personally reviewed and interpreted this imaging study as follows: Radiologist's impression: ITS Impressions Chest X-Ray 04/09/24 21:59 IMPRESSION: 1. No acute cardiopulmonary disease. Discharge Plan Discharge Clinical Impression: Abdominal pain of unknown cause Patient Disposition: Home, Self-Care Condition: Stable Instructions: Antibiotic Form, Abdominal Pain (ED) Additional Instructions: Please return to the ER with an worsening symptoms. Follow-up with primary care provider in the next 2-3 days. Take all medications as prescribed. Prescriptions: No Action sumatriptan succinate 25 mg tablet PO acetaminophen-codeine 300-30 mg tablet 1 tablet PO Q6H PRN (Reason: pain) Qty: 10 0RF cefdinir 300 mg capsule 300 mg PO Q12H Qty: 14 0RF Follow-up/Referrals: PHYSICIAN NOT ON STAFF,NONSTAFF [Primary Care Provider] -
[2024-04-09] MEDS: SODIUM CHLORIDE 0.9% IV 1,000 ML 999 ML IV CONT (22:19)
[2024-04-09] MEDS: KETOROLAC 15 MG/ML VIAL (*BKC) IV PUSH (22:20)
[2024-04-09] MEDS: MORPHINE SULFATE (*CRX) 2 MG/ML INJ IV PUSH (22:20)
[2024-04-09 23:05] LABS: Influenza A QL RT-PCR Negative (Negative); Influenza B QL RT-PCR Negative (Negative); RSV RNA, RT-PCR Negative (Negative); SARS-CoV-2 RNA PCR Negative (Negative)
--- NOTE | 2024-04-09 23:19 | PC.NURSE ---
Report received from MOE [facility]. Assumed care of patient at this time.
[2024-04-10] MEDS: HYDROcodone/acetaminophen (*CRX) 5-325 MG TABLET 1 TAB PO (01:23)
[2024-04-10 01:28] VITALS: BP 150/79; PULSE 78; RESP 16; O2SAT 99
== END 2024-04-10 01:30 | disposition home or self-care (01) ==
PROVIDERS: Emergency Medicine; Emergency Provider Registered Nurse
DX: R10.32 Left lower quadrant pain (principal); R10.31 Right lower quadrant pain; Z20.822 Contact with and (suspected) exposure to COVID-19; E28.2 Polycystic ovarian syndrome; Z90.710 Acquired absence of both cervix and uterus; R00.0 Tachycardia, unspecified
CPT/HCPCS: 36415; 71046; 74177; 80053; 81001; 83690; 84443; 85025; 87637; 93005; 96361; 96374; 96375; 99284; A9270; J1885; J2270; J7030; Q9967